=== PATIENT | female | born 1970 | race Caucasian/White ===

== ENCOUNTER 2024-01-16 06:32 | Day surgery (SDC) | payer OTHER, SELFPAY ==
[2024-01-12 13:56] VITALS: BMI 39.1
[2024-01-16] VITALS (15 sets, daily range): BP systolic 123–145; BP diastolic 58–88; BMI 39.1
[2024-01-16] MEDS: NEURONTIN 300 MG PO (11:15)
[2024-01-16] MEDS: CELEBREX 200 MG PO (11:15)
[2024-01-16] MEDS: TYLENOL 1000 MG PO (11:15)
[2024-01-16] MEDS: HEPARIN 5000 UNITS SC (11:16)
[2024-01-16] MEDS: NORMOSOL-R 1000 IV (11:17)
[2024-01-16] MEDS: TRANSDERM-SCOP 1 PATCH TRANSDERM (12:46)
--- NOTE | 2024-01-16 17:15 | OR.RPT ---
Operative Report
Operative Report
Date of surgery: January 16, 2024
Preoperative diagnosis endometrial cancer
Postoperative diagnosis: Same
Surgeon: Carter Bernal MD
Assist: Floyd King PA-C
Procedure:
Robotic assisted total laparoscopic hysterectomy, bilateral salpingo-oophorectomy, Pelvic washings [id number]
Injection of cervix with ICG dye, bilateral, for mapping and identification of sentinel lymph node [id number]
Robotic assisted laparoscopic bilateral pelvic sentinel lymph node [id number]
TAP Block 78989
Anesthesia: General endotracheal intubation
Estimated blood loss: 100 cc
Complication: None
Disposition: To PACU, awake extubated
Procedure in detail: This patient was brought to the operating room, she was placed in supine position, general anesthesia was administered and she was intubated without any difficulty. She was placed in lithotomy position using yellowfin
stirrups, she was prepped on the abdomen perineum and vagina. Arms were wrapped and forms and placed along the patient's side and all joints were properly examined to ensure proper positioning. Keita catheter was inserted under sterile conditions
into the bladder. Timeout procedure was carried out and she received appropriate antibiotics and DVT prophylaxis. Anterior lip of the cervix was grasped with single-tooth tenaculum, the cervix was injected at 3 and 9:00 with ICG dye 1 mL at 5 mm
and 10 mm stations. Cervix was gradually dilated, uterine manipulator sap bobj developer type with 3.5 cm KEYUR ring was placed in the uterine cavity and vaginal occluder was insufflated. Attention was turned abdominally, the Veress needle was inserted just
below the left subcostal margin into the peritoneal cavity and pneumoperitoneum was created with CO2 gas up to pressure of 15 mmHg. Next 8 mm robotic port was introduced approximately 25 cm cephalad to symphysis pubis into the peritoneal cavity and
under direct visualization additional 8 mm X I robotic ports were placed in right and left upper abdomen and right and left lateral abdomen. Survey of the upper abdomen reveals liver stomach falciform ligament diaphragms to be within normal limits.
Omentum is unremarkable. Tap block was performed with a combination of ropivacaine 0.5% 30 cc admixed with 30 cc normal saline injected 2 fingerbreadths below right and left costal margin, below the muscle and above the peritoneum. Next patient
was placed in 28 degree Trendelenburg position. Robotic system was docked, right and left round ligaments were sealed and divided anterior and posterior leaves of the broad ligament resected open. Pararectal and paravesical spaces were developed
and a clear window was created between IP ligament and ureters. Both IP ligaments were sealed and divided tubes and ovaries were left attached to the uterus. We used and near infrared lighting to identify sentinel lymph nodes which were located at
left obturator fossa as well as proximal left external iliac artery. On the right side the lymphatic channel appeared to and within the right obturator fossa. An additional right external iliac artery lymph node was removed due to its enlarged
size. Following this bladder flap was sharply developed and advanced below the cervical vaginal junction.Uterine arteries were skeletonized, they were sealed twice and divided, a circumferential incision was made around the KEYUR ring in order to
completely detach the uterus and cervix. The specimen was extracted through the vagina and was handed to the OR staff to be delivered to pathology. We then closed the vaginal cuff with 0 Vicryl suture ligature in a [id number] fashion at both
vaginal apices incorporating uterosacral ligaments. Following this V-Loc suture was used in a bidirectional fashion to close the cuff starting from right to left and back to the left side. We irrigated the pelvis and all operative sites and
establish good hemostasis. All laparoscopic ports were removed and pneumoperitoneum was released, robotic system was undocked and the patient was placed in supine position. All incisions were closed at the level of the skin with 4-0 Monocryl
suture. All incisions were injected with 0.25% bupivacaine. Patient was awakened extubated and returned back to recovery room stable when awake and extubated condition. Counts of laps instruments and needle was correct x 2. I was present and
scrubbed for entire procedure as dictated above.
[2024-01-16] MEDS: ZOFRAN 4 MG IV (17:24)
--- NOTE | 2024-01-16 18:15 | SUR.PHASEI ---
patient medicated with multiple meds in OR for history of PONV. Very sleepy. initially denied pain and nausea and then with repositioning - c/o of nausea at 1724 - medicated for same with relief. c/o now of minimal discomfort, able to sleep.
Starting phase 2 in pacu, sleeping but arousable and oriented, has taken few ice chips
[2024-01-16] MEDS: TORADOL 15 MG IV (18:30)
[2024-01-16] MEDS: TYLENOL 650 MG PO (19:09)
--- NOTE | 2024-01-16 19:44 | SUR.PHASEII ---
Patient given both toradol and tylenol in Phase II stay. Able to ambulate to bathroom with minimal assistance and voided, brought to bedside, reviewed instructions, reviewed IS and patient pulling 1000cc volume with encouragement. no
further nausea, able to tolerate juice, water and crackers. discharged to car with 's care
== END 2024-01-16 19:35 | disposition home or self-care (01) ==
LOC: SDS 06:32
PROVIDERS: ATTENDING PHYSICIAN Obstetrics & Gynecology Gynecologic Oncology; FAMILY PHYSICIAN Nurse Practitioner Family
DX: C54.1 Malignant neoplasm of endometrium (principal); N80.03 Adenomyosis of the uterus; D25.9 Leiomyoma of uterus, unspecified; Z17.0 Estrogen receptor positive status [ER+]
CPT/HCPCS: 38571; 58571; 38900; 88305; 88307; 88309; 36415; 86850; 86900; 86901; 88112; 88342; 88360